=== PATIENT | female | born 1965 | race Two or more races ===

== ENCOUNTER → 2018-05-01 | Outpatient (CLI) | payer OTHER ==
[~2018-05-01] MED LIST: FLONASE16 G1 NS; ZYRTEC10 MG PO
== END | disposition home or self-care (01) ==
LOC: SONOGRAMA 09:23
DX: N92.0 Excessive and frequent menstruation with regular cycle (principal)

== ENCOUNTER → 2018-06-23 06:00 | Outpatient (CLI) | payer OTHER ==
[~2018-06-23 06:00] MED LIST changes: +ADRENOID CAPSU1 EACH PO; +IRON325 MG PO; +VITAMIN D22000 UNIT PO
== END | disposition home or self-care (01) ==
LOC: LAB 06:00 → CIR.AMB 06-25 08:45 → EDSTATUS 06-25 08:45 → CIR.AMB 06-25 15:29
DX: N87.1 Moderate cervical dysplasia (principal); N92.0 Excessive and frequent menstruation with regular cycle; Z01.810 Encounter for preprocedural cardiovascular examination; Z01.812 Encounter for preprocedural laboratory examination

== ENCOUNTER → 2019-01-20 | Outpatient (CLI) | payer OTHER | END | disposition home or self-care (01) | LOC: LAB 06:31 | DX: D68.0 Von Willebrand disease (principal); M06.4 Inflammatory polyarthropathy; D75.1 Secondary polycythemia; D51.8 Other vitamin B12 deficiency anemias; D51.3 Other dietary vitamin B12 deficiency anemia; Z80.3 Family history of malignant neoplasm of breast; Z80.0 Family history of malignant neoplasm of digestive organs; E03.8 Other specified hypothyroidism; E78.2 Mixed hyperlipidemia; D68.8 Other specified coagulation defects; D50.8 Other iron deficiency anemias; I10 Essential (primary) hypertension ==

== ENCOUNTER 2019-02-01 07:07 | Day surgery (SDC) | payer OTHER | END 2019-02-01 12:45 | disposition home or self-care (01) | LOC: CIR.AMB 07:07 | DX: N84.1 Polyp of cervix uteri (principal) ==

== ENCOUNTER 2019-02-12 13:18 | Emergency (ER) | payer OTHER ==
[~2019-02-12] VITALS: Ht 152.4 cm; Wt 70.3 kg
[2019-02-12] MEDS ORDERED: VITAMIN B122500 MCG (13:50)
== END 2019-02-12 19:31 | disposition home or self-care (01) ==
LOC: ER 13:18
DX: N93.8 Other specified abnormal uterine and vaginal bleeding (principal)

== ENCOUNTER 2019-07-08 15:38 | Outpatient (CLI) | payer OTHER ==
[~2019-07-08 15:38] MED LIST changes: +VITAMIN B122500 MCG
== END 2019-07-08 15:44 | disposition home or self-care (01) ==
LOC: LAB 15:38
DX: J11.1 Influenza due to unidentified influenza virus with other respiratory manifestations (principal)

== ENCOUNTER 2019-10-21 17:24 | Outpatient (CLI) | payer OTHER | END 2019-10-21 17:38 | disposition home or self-care (01) | LOC: LAB 17:24 | DX: J11.1 Influenza due to unidentified influenza virus with other respiratory manifestations (principal); R05 Cough ==

== ENCOUNTER 2020-02-08 14:51 | Outpatient (CLI) | payer OTHER ==
[2020-02-08] MEDS ORDERED: DICYCLOMINE HCL 20 MG (19:58)
[2020-02-08] MEDS ORDERED: DICLOFENAC SODI50 MG (19:59)
[2020-02-08] MEDS ORDERED: CYCLOBENZAPRINE 5 MG (20:00)
== END 2020-02-08 14:59 | disposition home or self-care (01) ==
LOC: LAB 14:51
PROVIDERS: ATTEND General Practice
DX: R10.2 Pelvic and perineal pain (principal); R10.30 Lower abdominal pain, unspecified

== ENCOUNTER 2020-02-08 19:36 | Emergency (ER) | payer OTHER ==
[~2020-02-08] VITALS: Ht 152.4 cm; Wt 69.4 kg
[2020-02-08] MEDS ORDERED: DICYCLOMINE HCL 20 MG (19:58)
[2020-02-08] MEDS ORDERED: DICLOFENAC SODI50 MG (19:59)
[2020-02-08] MEDS ORDERED: CYCLOBENZAPRINE 5 MG (20:00)
== END 2020-02-09 01:04 | disposition home or self-care (01) ==
LOC: ER 19:36
DX: R10.31 Right lower quadrant pain (principal); N39.0 Urinary tract infection, site not specified

== ENCOUNTER → 2020-02-18 | Outpatient (CLI) | payer OTHER ==
[~2020-02-18] MED LIST changes: +CYCLOBENZAPRINE 5 MG; +DICLOFENAC SODI50 MG; +DICYCLOMINE HCL 20 MG
== END | disposition home or self-care (01) ==
LOC: SONOGRAMA 09:04
PROVIDERS: ATTEND General Practice
DX: R10.2 Pelvic and perineal pain (principal); R10.30 Lower abdominal pain, unspecified

== ENCOUNTER 2021-03-01 07:10 | Outpatient (CLI) | payer OTHER | END 2021-03-01 07:22 | disposition home or self-care (01) | LOC: RAD 07:10 | PROVIDERS: ATTEND Specialist | DX: M79.672 Pain in left foot (principal) ==

== ENCOUNTER → 2022-10-01 06:24 | Outpatient (CLI) | payer OTHER ==
[~2022-10-01 06:24] MED LIST changes: +NORFLEX100MG PO
== END | disposition home or self-care (01) ==
LOC: LAB 06:24
PROVIDERS: ATTEND Internal Medicine Hematology & Oncology
DX: R74.01 Elevation of levels of liver transaminase levels (principal); R10.13 Epigastric pain; D50.8 Other iron deficiency anemias; I10 Essential (primary) hypertension; R74.02 Elevation of levels of lactic acid dehydrogenase [LDH]; K76.89 Other specified diseases of liver; D51.8 Other vitamin B12 deficiency anemias; D68.8 Other specified coagulation defects; D69.1 Qualitative platelet defects; D68.00 Von Willebrand disease, unspecified; M06.4 Inflammatory polyarthropathy; D75.1 Secondary polycythemia; D51.3 Other dietary vitamin B12 deficiency anemia; Z80.3 Family history of malignant neoplasm of breast; Z80.0 Family history of malignant neoplasm of digestive organs; E03.8 Other specified hypothyroidism; E78.2 Mixed hyperlipidemia

== ENCOUNTER → 2022-10-11 09:23 | Outpatient (CLI) | payer OTHER | END | disposition home or self-care (01) | LOC: LAB 09:23 | PROVIDERS: ATTEND Obstetrics & Gynecology | DX: E03.9 Hypothyroidism, unspecified (principal); I10 Essential (primary) hypertension; Z00.00 Encounter for general adult medical examination without abnormal findings; E78.00 Pure hypercholesterolemia, unspecified; Z01.818 Encounter for other preprocedural examination; Z20.828 Contact with and (suspected) exposure to other viral communicable diseases; D50.8 Other iron deficiency anemias; K76.89 Other specified diseases of liver; D68.8 Other specified coagulation defects; C50.919 Malignant neoplasm of unspecified site of unspecified female breast; R97.8 Other abnormal tumor markers; C25.9 Malignant neoplasm of pancreas, unspecified; C56.9 Malignant neoplasm of unspecified ovary; R97.1 Elevated cancer antigen 125 [CA 125] ==

== ENCOUNTER 2022-10-11 10:44 | Outpatient (CLI) | payer OTHER | END 2022-10-11 11:00 | disposition home or self-care (01) | LOC: SONOGRAMA 10:44 | PROVIDERS: ATTEND Obstetrics & Gynecology | DX: N94.0 Mittelschmerz (principal); R10.2 Pelvic and perineal pain; N94.89 Other specified conditions associated with female genital organs and menstrual cycle; R10.84 Generalized abdominal pain ==

== ENCOUNTER 2022-11-18 05:30 | Day surgery (SDC) | payer OTHER ==
[~2022-11-18] VITALS: Ht 152.4 cm; Wt 70.8 kg
[~2022-11-18 05:30] MED LIST changes: +DDAVP0.1 MG PO; +NEURIN; +TOPROL XL25 M1 PO
== END 2022-11-18 10:50 | disposition home or self-care (01) ==
LOC: CIR.AMB 05:30
PROVIDERS: ATTEND Obstetrics & Gynecology
DX: N95.0 Postmenopausal bleeding (principal); N84.0 Polyp of corpus uteri; Z88.8 Allergy status to other drugs, medicaments and biological substances; Z20.822 Contact with and (suspected) exposure to COVID-19; I10 Essential (primary) hypertension

== ENCOUNTER 2024-08-06 10:57 | Outpatient (CLI) | payer OTHER ==
[2024-08-10 14:44] LABS: ALPHA 1 ANTITRYPSIN 117 mg/dL (101-187); CERULOPLASMIN 29.5 mg/dL (19.0-39.0); hav igm Negative (Negative); hcv Non Reactive (Non Reactive); hep b c Negative (Negative); hep b s ag Negative (Negative)
== END 2024-08-06 13:56 | disposition home or self-care (01) ==
LOC: LAB 10:57
DX: R74.8 Abnormal levels of other serum enzymes (principal); R16.0 Hepatomegaly, not elsewhere classified

== ENCOUNTER 2024-08-06 11:30 | Outpatient (CLI) | payer OTHER | END 2024-08-06 11:32 | disposition home or self-care (01) | LOC: SONOGRAMA 11:30 | DX: M25.561 Pain in right knee (principal); M25.562 Pain in left knee; R74.8 Abnormal levels of other serum enzymes ==

== ENCOUNTER → 2024-09-24 08:54 | Outpatient (CLI) | payer OTHER ==
[2024-09-24 10:16] LABS: URINE APPEARANCE Clear; URINE BILIRRUBIN Negative (NEGATIVE); URINE BLOOD Negative; URINE COLOR Yellow; URINE GLUCOSE Negative (NEGATIVE); URINE KETONE Negative (NEGATIVE); URINE LEUKOCYTE Negative; URINE NITRATE Negative; URINE PROTEIN Negative (NEGATIVE); URINE UROBILINOGEN 0.2 E.U./dl
[2024-09-24 10:20] LABS: URINE BACTERIA 50.1 uL (0.0-1933); URINE EPITHELIAL CELLS 8.3 uL (0.0-38.8); URINE RBC 3.6 uL (0.0-20.8); URINE WBC 4.2 uL (0.0-23.2)
[2024-09-24 10:24] LABS: HEMATOCRIT 40.1 % (36.0-45.00); HEMOGLOBIN 13.4 g/dL (12.0-15.00); MEAN CELL VOLUME 82.2 fL (80.00-100.00); MEAN CORPUSCULAR HEMOGLOBIN 27.5 pg (27.00-32.0); MEAN CORPUSCULAR HGB CONC 33.5 g/dl (32.0-36.0); PLATELET COUNT 422 K/uL (150-450); RED BLOOD COUNT 4.88 M/uL (4.00-6.00); RED CELL DISTRIBUTION WIDTH 14.3 % (11.5-14.5)
[2024-09-24 10:43] LABS: URINE CAST 0.29 uL (0.0-1.40)
[2024-09-24 11:21] LABS: ALBUMIN 3.8 gm/dL (3.4-5.0); BILIRUBIN TOTAL 0.39 mg/dL (0.3-1.2); CALCIUM 9.2 mg/dL (8.5-10.1); CHOL HDL RATIO 3.9 (0-5.0); CREATININE SERUM 0.71 mg/dL (0.55-1.02); GFR 84.26; GLOBULINA 3.6 G/DL (2.4-3.5); POTASSIUM 4.72 mEq/L (3.5-5.1); TOTAL PROTEIN 7.4 gm/dL (6.4-8.2)
[2024-09-24 11:47] LABS: T4 FREE 0.96 NG/ML (0.76-1.46); TSH 0.794 uIU/mL (0.358-3.74)
== END | disposition home or self-care (01) ==
LOC: LAB 08:54
PROVIDERS: ATTEND Obstetrics & Gynecology
DX: Z00.00 Encounter for general adult medical examination without abnormal findings (principal); I10 Essential (primary) hypertension; E03.9 Hypothyroidism, unspecified; E78.00 Pure hypercholesterolemia, unspecified; N39.0 Urinary tract infection, site not specified; Z11.4 Encounter for screening for human immunodeficiency virus [HIV]; Z12.11 Encounter for screening for malignant neoplasm of colon; E55.9 Vitamin D deficiency, unspecified; Z21 Asymptomatic human immunodeficiency virus [HIV] infection status; R79.9 Abnormal finding of blood chemistry, unspecified; R79.89 Other specified abnormal findings of blood chemistry

== ENCOUNTER 2024-09-24 09:52 | Outpatient (CLI) | payer OTHER | END 2024-09-24 10:02 | disposition home or self-care (01) | LOC: SONOGRAMA 09:52 | PROVIDERS: ATTEND Obstetrics & Gynecology | DX: R10.2 Pelvic and perineal pain (principal); N94.0 Mittelschmerz; N94.89 Other specified conditions associated with female genital organs and menstrual cycle ==

== ENCOUNTER 2025-03-28 05:26 | Day surgery (SDC) | payer OTHER ==
[2025-03-22 09:54] VITALS: BP 130/88
[2025-03-22 10:02] LABS: URINE APPEARANCE Clear; URINE BACTERIA 190.7 uL (0.0-1933); URINE BILIRRUBIN Negative (NEGATIVE); URINE BLOOD Negative; URINE COLOR Yellow; URINE EPITHELIAL CELLS 46.7 uL (0.0-38.8); URINE GLUCOSE Negative (NEGATIVE); URINE KETONE Negative (NEGATIVE); URINE LEUKOCYTE Negative; URINE NITRATE Negative; URINE PROTEIN Negative (NEGATIVE); URINE RBC 53.5 uL (0.0-20.8); URINE UROBILINOGEN 0.2 E.U./dl; URINE WBC 8.0 uL (0.0-23.2)
[2025-03-22 10:11] LABS: BASO % 0.5 % (0.1-1.2); EOS # 0.18 (0.04-0.54); EOS % 2.1 % (0.7-7.0); LYMPH # 2.13 (1.18-3.74); LYMPH % 25.3 % (19.3-53.1); MEAN PLATELET VOLUME 9.20 fl (9.4-12.4); MONO # 0.57 (0.24-0.82); MONO % 6.8 % (4.7-12.5); NEUT # 5.48 (1.56-6.13); NEUT % 64.9 % (34.0-71.1); RED CELL DISTRIBUTION WIDTH 14.0 % (11.6-14.4)
[2025-03-22 10:14] LABS: URINE CAST 0.14 uL (0.0-1.40)
[2025-03-22 10:50] LABS: COVID-19 AG NEGATIVE (NEGATIVE)
[2025-03-22 10:51] LABS: ALT/SGPT 36.0 U/L (12-78); AST/SGOT 15.0 U/L (15-37); BILIRUBIN TOTAL 0.38 mg/dL (0.3-1.2); BUN CREA RATIO 27.0 (7.0-25.0); CREATININE SERUM 0.75 mg/dL (0.55-1.02); GFR 78.82; GLOBULINA 3.7 G/DL (2.4-3.5); GLUCOSE FASTING 102.0 mg/dL (65-100); OSMOLALITY SERUM 282.0 MOSM/KG (275-295)
[2025-03-22 12:18] LABS: INR 0.99
[~2025-03-28] VITALS: Ht 152.4 cm; Wt 68.5 kg
[~2025-03-28 05:26] MED LIST changes: +NORVASC2.5 M1 PO
[2025-03-28] MEDS ORDERED: DESMOPRESSIN ACETATE 40 MCG/10 ML ML IV SCH (07:00)
[2025-03-28] MEDS ORDERED: ONDANSETRON HCL 2 MG/ML VIAL IV ONE (08:30)
[2025-03-28] MEDS ORDERED: MORPHINE SULFATE 4 MG/ML VIAL IV ONE (09:05)
== END 2025-03-28 10:10 | disposition home or self-care (01) ==
LOC: CIR.AMB 05:26
PROVIDERS: ATTEND Obstetrics & Gynecology
DX: N84.0 Polyp of corpus uteri (principal); N93.8 Other specified abnormal uterine and vaginal bleeding; R10.2 Pelvic and perineal pain